=== PATIENT | female | born 1995 | race Caucasian/White ===

== ENCOUNTER 2017-02-07 00:09 | Emergency (ER) | payer OTHER ==
[2017-02-07] MEDS ORDERED: KETOROLAC 30 MG/1 ML SDV IVP ONE (00:44)
[2017-02-07] MEDS ORDERED: NS 1,000 ML IV ONE (00:44)
[2017-02-07] MEDS ORDERED: METOCLOPRAMIDE 10 MG/2 ML VIAL IVP ONE (00:44)
--- NOTE | 2017-02-07 00:49 | EDPHY ---
H & P Stated Complaint: R sided DE LA GARZA since today Time Seen by Provider: 02/07/17 00:25 HPI/ROS: HPI The patient presents with headache which was intermittent throughout the day today though worse at approximately 11:45 p.m. tonight when she was watching television. It became worse quickly and is described as an aching sensation of her right head. At 11:45 a.m., she noticed numbness of her right face and also noticed that her right eye was tearing and she had some difficulty focusing her vision with her right eye. She did not notice any weakness of her arms or legs. She has history of mild headaches, though nothing this severe. She took ibuprofen and Tylenol today without much improvement in her symptoms. She has not had any vomiting. She denies any trauma. REVIEW OF SYSTEMS Constitutional: No fever, no chills. Eyes: No discharge. ENT: No sore throat. Cardiovascular: No chest pain, no palpitations. Respiratory: No cough, no shortness of breath. Gastrointestinal: No abdominal pain, no vomiting. Genitourinary: No hematuria. Musculoskeletal: No back pain. Skin: No rashes. Neurological: No headache. 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 FHx: Mother with migraines PHYSICAL General Appearance: Alert, no distress Eyes: Pupils equal and round no pallor or injection ENT, Mouth: Mucous membranes moist Respiratory: There are no retractions, lungs are clear to auscultation Cardiovascular: Regular rate and rhythm Gastrointestinal: Abdomen is soft and non-tender, no masses, bowel sounds normal Neurological: Alert and oriented x3, cranial nerves 2-12 intact except for diminished sensation to light touch in V1 through V3 distribution on the right, 5/5 strength in upper and lower extremities which is symmetric Skin: Warm and dry, no rashes Musculoskeletal: Neck is supple non tender Extremities: symmetrical, full range of motion Psychiatric: Patient is oriented X 3, there is no agitation Source: Patient Exam Limitations: No limitations - Personal History LMP (Females 10-55): 8-14 Days Ago Current Tetanus/Diphtheria Vaccine: Yes Current Tetanus Diphtheria and Acellular Pertussis (TDAP): Yes - Medical/Surgical History Hx Asthma: No Hx Chronic Respiratory Disease: No Hx Diabetes: No Hx Cardiac Disease: No Hx Renal Disease: No Hx Cirrhosis: No Hx Alcoholism: No Hx HIV/AIDS: No Hx Splenectomy or Spleen Trauma: No Other PMH: PMH- IBS. PSH- APPY - Social History Smoking Status: Never smoked Constitutional: Initial Vital Signs Temperature (C) 36.6 C 02/07/17 00:12 Heart Rate 74 02/07/17 00:12 Respiratory Rate 18 02/07/17 00:12 Blood Pressure 120/75 02/07/17 00:12 O2 Sat (%) 98 02/07/17 00:12 O2 Delivery Mode Room Air Allergies/Adverse Reactions: cetirizine HCl [From Zyrtec] Allergy (Verified 02/07/17 00:15) gluten Allergy (Verified 02/07/17 00:15) loratadine [From Claritin] Allergy (Verified 02/07/17 00:15) Milk Containing Products [dairy] Allergy (Verified 02/07/17 00:15) montelukast sodium [From Singulair] Allergy (Verified 02/07/17 00:15) Home Medications: Medication Instructions Recorded NK [No Known Home Meds] 02/07/17 Medical Decision Making - Diagnostics Imaging Results: CT brain noncontrast is unremarkable, discussed with Dr. Rebolledo of Radiology. Differential Diagnosis: This is a 21-year-old female with no significant past medical history who presents with 1 day of intermittent mild headache which became severe at approximately 11:45 p.m. tonight while watching television. It is now associated with diminished sensation to light touch of her right face. She does not have any other neurologic deficits on my exam. Differential diagnosis includes subarachnoid hemorrhage, atypical migraine, cluster headache. Is in the emergency department, the patient was given 1 L of normal saline for migraine headache, she was also given Reglan and Toradol with improvement in her symptoms. CT scan of the head was obtained was unremarkable. Given that her symptoms became acutely worse about 1 hour prior to presentation, I would expect CT scan of head to be positive if there was truly subarachnoid hemorrhage. The patient will be discharged home with instructions for ibuprofen. - Data Points Medications Given: Discontinued Medications Sodium Chloride (Ns) 1,000 mls @ 0 mls/hr IV ONCE ONE; Wide Open PRN Reason: Protocol Stop: 02/07/17 00:45 Last Admin: 02/07/17 00:59 Dose: 1,000 mls Ketorolac Tromethamine (Toradol) 15 mg IVP EDNOW ONE Stop: 02/07/17 00:45 Last Admin: 02/07/17 00:59 Dose: 15 mg Metoclopramide HCl (Reglan Injection) 10 mg IVP EDNOW ONE Stop: 02/07/17 00:45 Last Admin: 02/07/17 01:01 Dose: 10 mg Departure - Departure Disposition: Home, Routine, Self-Care Clinical Impression: Paresthesia Headache Qualifiers: Headache type: unspecified Headache chronicity pattern: acute headache Intractability: not intractable Qualified Code(s): R51 - Headache Condition: Good Instructions: Migraine Headache (ED) Additional Instructions: Please take ibuprofen 400 mg every 6 hours as needed for your headache. I have given you follow-up information for the neurologist and I would like for you to call for an appointment if your headache continues. Referrals: Jaime Jose MD [Medical Doctor] - As per Instructions
[2017-02-07] MEDS ORDERED: NS 50 ML BAG IV ONE (00:54)
[2017-02-07 02:05] VITALS: O2SAT 99
[2017-02-07 02:25] VITALS: BP 94/52; PULSE 62; RESP 14; TEMP 97.9
== END 2017-02-07 02:27 | disposition home or self-care (01) ==
DX: R51 Headache (principal); R20.2 Paresthesia of skin; E86.9 Volume depletion, unspecified
CPT/HCPCS: 96374; J1885; J2765

== ENCOUNTER → 2017-10-01 | Outpatient (CLI) | payer OTHER | LOC: FIMAGING 18:54 | PROVIDERS: ATTEND Physical Medicine & Rehabilitation | DX: S46.111A Strain of muscle, fascia and tendon of long head of biceps, right arm, initial encounter (principal); M75.91 Shoulder lesion, unspecified, right shoulder; S43.431A Superior glenoid labrum lesion of right shoulder, initial encounter ==

== ENCOUNTER → 2018-02-07 | Outpatient (CLI) | payer OTHER | LOC: FIMAGING 15:04 | PROVIDERS: ATTEND Family Medicine | DX: Z30.431 Encounter for routine checking of intrauterine contraceptive device (principal); N92.0 Excessive and frequent menstruation with regular cycle; N83.202 Unspecified ovarian cyst, left side ==